=== PATIENT | male | born 2000 | race Caucasian/White ===

== ENCOUNTER 2022-12-10 12:15 | Emergency (ER) | payer BC ==
[~2022-12-10] VITALS: Ht 182.9 cm; Wt 59.0 kg
[2022-12-10 12:35] VITALS: BP_SYST 113
--- NOTE | 2022-12-10 12:40 | NUR ---
EKG IN PROGRESS, DR NIELSEN INFOMRED OF PT'S STATUS, OK FOR PT TO STAY IN [facility] AT THIS TIME.
--- NOTE | 2022-12-10 12:50 | NUR ---
DR NIELSEN IN ROOM FOR EXAM
[2022-12-10 13:50] LABS: ANION GAP 11 (5-15); CALCIUM 9.5 mg/dL (8.4-11.0); CHLORIDE 102 mmol/L (98-107); CREATININE 0.98 mg/dL (0.55-1.30); GFR AFRICAN AMERICAN 122 mL/min (>90); GLUCOSE 97 mg/dL (70-99); UREA NITROGEN, BLOOD 14 mg/dL (8-21)
[2022-12-10 13:53] LABS: BASOPHILS % (AUTO) 0.4 % (0.0-2.0); EOSINOPHILS % (AUTO) 0.2 % (0.0-4.0); HEMOGLOBIN 16.8 g/dL (14.0-18.0); MEAN CORPUSCULAR HEMOGLOBIN 31 pg (27-31); MEAN CORPUSCULAR HGB CONC 34 % (32-36); MEAN CORPUSCULAR VOLUME 90 fL (79.0-98.0); MONOCYTES % (AUTO) 4.7 % (1.7-9.3); NEUTROPHILS # (AUTO) 6.2 K/uL (1.8-7.7); NEUTROPHILS % (AUTO) 74.7 % (40.0-70.0); PLATELET COUNT (AUTO) 293 K/uL (130-430); RED BLOOD CELL COUNT(AUTO) 5.46 MIL/uL (4.2-6.2); RED CELL DISTRIBUTION WIDTH 12.3 % (9.0-15.0); WHITE BLOOD COUNT (AUTO) 8.3 K/uL (4.8-10.8)
[2022-12-10 13:54] LABS: LYMPHOCYTES # (AUTO) 1.7 K/uL (1.0-5.5); MONOCYTES # (AUTO) 0.4 K/uL (0.0-1.0)
[2022-12-10 14:03] LABS: ALANINE AMINOTRANSFERASE 29 U/L (12-78); ALBUMIN 5.2 g/dL (3.4-4.8); ASPARTATE AMINOTRANSFERASE 19 U/L (10-37); PHOSPHORUS 2.9 mg/dL (2.7-4.5)
--- NOTE | 2022-12-10 15:13 | NUR ---
Patient given written and verbal discharge instructions and verbalizes understanding. ER MD discussed with patient the results and treatment provided. Patient in stable condition. ID arm band removed. Patient educated on pain management and to follow up with PMD. Pain Scale [0]. Opportunity for questions provided and answered. Medication side effect fact sheet provided.
[2022-12-10 15:20] VITALS: BP_SYST 113
== END 2022-12-10 15:15 | disposition home or self-care (01) ==
LOC: SED 12:15
DX: R00.2 Palpitations (principal); R11.0 Nausea; R42 Dizziness and giddiness; Z79.899 Other long term (current) drug therapy
CPT/HCPCS: 36415; 80053; 83735; 84100; 84443; 84484; 85025; 93005; 99284